=== PATIENT | female | born 1945 | race American Indian/Alaskan Native ===

== ENCOUNTER 2017-03-17 11:57 | Outpatient (CLI) | payer MEDICARE ==
--- NOTE | 2017-03-17 13:10 | Mammography Report ---
Screening mammogram: Prior exams dating back to 2014. The left breast pattern is generally stable and that of intermediate fibroglandular density. There multiple nodular densities in the right breast. Several of these have remained stable however in the anterior breast just above and lateral to their is an enlarging circumscribed nodule and in the central breast appear to be in new circumscribed nodular density. The findings are not otherwise remarkable. CAD used. Impression: Right breast nodular asymmetries. Recommendation: Additional spot compression imaging of the right breast nodules and ultrasound. BI-RADS CATEGORY: 0 = Needs additional imaging evaluation ACR BI-RADS MAMMOGRAPHIC CODES: 0 = Needs additional imaging evaluation; 1 = Negative; 2 = Benign; 3 = Probably benign; 4 = Suspicious; 5 = Malignant; 6 = Known biopsy-proven malignancy COMMENT: 1. Dense breast tissue, i.e., adenosis, fibrocystic changes, etc., may obscure an underlying neoplasm. 2. Approximately 10% of cancers are not detected with mammography. 3. A negative mammography report should not delay biopsy if a clinically suspicious mass is present.
== END 2017-03-17 11:58 | disposition home or self-care (01) ==
LOC: MAMMO 11:57
PROVIDERS: ATTEND Internal Medicine
DX: Z12.31 Encounter for screening mammogram for malignant neoplasm of breast (principal)
CPT/HCPCS: 77067; G0202

== ENCOUNTER 2017-05-15 10:54 | Outpatient (CLI) | payer MEDICARE ==
--- NOTE | 2017-05-15 14:04 | Mammography Report ---
Right mammogram and right breast ultrasound: Compression imaging of the right breast confirms the presence of a circumscribed nodule in the anterolateral breast near the nipple measuring just under 14 mm. The 2 adjacent densities were noted in the lateral projection of the mid-breast on prior screening imaging however are lower identified. Ultrasound of the upper outer breast demonstrates shadowing calcifications at 2:00. In the 3:00 subareolar location there is a circumscribed anechoic mass measuring just over 1 cm consistent with the circumscribed mammographic mass. Also in the 2:00 location 10 cm away from the nipple is a circumscribed homogeneous hypodensity measuring 5 mm as well as an adjacent similar density. No other findings. Impressions: 1. The discrete mammographic density is consistent with a simple cyst. 2. The hypodense nodules have no suspicious characteristics and may represent small lymph nodes. Recommendation: Annual mammogram followup. BI-RADS CATEGORY: 2 = Benign ACR BI-RADS MAMMOGRAPHIC CODES: 0 = Needs additional imaging evaluation; 1 = Negative; 2 = Benign; 3 = Probably benign; 4 = Suspicious; 5 = Malignant; 6 = Known biopsy-proven malignancy COMMENT: 1. Dense breast tissue, i.e., adenosis, fibrocystic changes, etc., may obscure an underlying neoplasm. 2. Approximately 10% of cancers are not detected with mammography. 3. A negative mammography report should not delay biopsy if a clinically suspicious mass is present.
== END 2017-05-15 10:55 | disposition home or self-care (01) ==
LOC: MAMMO 10:54
PROVIDERS: ATTEND Internal Medicine
DX: N63.10 Unspecified lump in the right breast, unspecified quadrant (principal); R92.8 Other abnormal and inconclusive findings on diagnostic imaging of breast; R92.1 Mammographic calcification found on diagnostic imaging of breast

== ENCOUNTER 2018-04-10 10:02 | Outpatient (CLI) | payer MEDICARE ==
--- NOTE | 2018-04-10 12:55 | Mammography Report ---
BILATERAL DIGITAL SCREENING MAMMOGRAM with CAD: 04/10/18 10:02:00 CLINICAL: Routine screening. COMPARISON:05/15/17, 03/17/17 and 03/11/16 FINDINGS: There are scattered areas of fibroglandular density.Stable right outer circumscribed masses. No new mass, architectural distortion or suspicious calcifications. IMPRESSION: No mammographic evidence of malignancy. BI-RADS CATEGORY: 2 -- Benign RECOMMENDATION: Routine mammographic screening in one year. COMMENT: Patient follow-up letters are generated by our [employer] application.
== END 2018-04-10 10:03 | disposition home or self-care (01) ==
LOC: MAMMO 10:02
PROVIDERS: ATTEND Internal Medicine
DX: Z12.31 Encounter for screening mammogram for malignant neoplasm of breast (principal)
CPT/HCPCS: 77067

== ENCOUNTER 2019-04-12 10:43 | Outpatient (CLI) | payer MEDICARE ==
--- NOTE | 2019-04-12 13:25 | Mammography Report ---
DIGITAL SCREENING MAMMOGRAM WITH CAD, 04/12/2019 INDICATION: Routine screening mammography. TECHNIQUE: Digital bilateral 2D mammography was obtained in the craniocaudal and mediolateral obliq ue projections. This examination was interpreted with the benefit of Computer-Aided Detection analysi s. COMPARISON: 04/10/2018 and 06/16/2013 FINDINGS: Breast Density: There are scattered areas of fibroglandular density. There is no evidence of new mass, suspicious calcifications or architectural distortion in either letty ast. IMPRESSION: No mammographic evidence of malignancy. Follow up recommendation: Routine yearly BI-RADS Category 2: Benign. A "normal" or negative report should not discourage follow up or biopsy of a clinically significant f inding. A written summary of these findings will be mailed to the patient. The patient will be entered into a mammography reporting system which will generate a reminder letter for the patient's next appointmen t at the appropriate interval. The [employer] recommends yearly mammograms starting at age 40 and continuing as l nasim as a woman is in good health. Breast MRI is recommended for women with an approximate 20-25% or greater lifetime risk of breast cancer, including women with a strong family history of breast or ova ted cancer or who have been treated for Hodgkin's disease. Signer Name: Von Benson MD Signed: 04/12/2019 1:20 PM Workstation Name: [id number]
== END 2019-04-12 10:44 | disposition home or self-care (01) ==
LOC: MAMMO 10:43
PROVIDERS: ATTEND Internal Medicine
DX: Z12.31 Encounter for screening mammogram for malignant neoplasm of breast (principal); N64.89 Other specified disorders of breast
CPT/HCPCS: 77067

== ENCOUNTER 2020-05-22 11:57 | Outpatient (CLI) | payer MEDICARE ==
--- NOTE | 2020-05-22 15:24 | Mammography Report ---
DIGITAL SCREENING MAMMOGRAM WITH CAD, 05/22/2020 CLINICAL INFORMATION / INDICATION: Routine screening mammography. TECHNIQUE: Digital bilateral 2D mammography was obtained in the craniocaudal and mediolateral obliqu e projections. This examination was interpreted with the benefit of Computer-Aided Detection analysis . COMPARISON: 04/12/2019, 04/10/2018 FINDINGS: Breast Density: There are scattered areas of fibroglandular density. No dominant mass, suspicious calcifications, or architectural distortion in either breast. Stable benign-appearing nodularity is again noted in the right breast, most likely multiple fibroaden omas. Overall, no significant interval change. IMPRESSION: No mammographic evidence of malignancy. Follow up recommendation: Routine yearly BI-RADS Category 2: Benign. A "normal" or negative report should not discourage follow up or biopsy of a clinically significant f inding. A written summary of these findings will be mailed to the patient. The patient will be entered into a mammography reporting system which will generate a reminder letter for the patient's next appointmen t at the appropriate interval. The [employer] recommends yearly mammograms starting at age 40 and continuing as l nasim as a woman is in good health. Breast MRI is recommended for women with an approximate 20-25% or greater lifetime risk of breast cancer, including women with a strong family history of breast or ova ted cancer or who have been treated for Hodgkin's disease. Signer Name: Sandrita Mir MD Signed: 05/22/2020 3:20 PM Workstation Name: [id number]
== END 2020-05-22 11:58 | disposition home or self-care (01) ==
LOC: MAMMO 11:57
PROVIDERS: ATTEND Internal Medicine
DX: Z12.31 Encounter for screening mammogram for malignant neoplasm of breast (principal)
CPT/HCPCS: 77067

== ENCOUNTER 2021-05-28 11:35 | Outpatient (CLI) | payer MEDICARE ==
--- NOTE | 2021-05-28 14:07 | Mammography Report ---
DIGITAL SCREENING MAMMOGRAM WITH CAD, 05/28/2021 CLINICAL INFORMATION / INDICATION: Routine screening mammography. SCREENING MAMMO TECHNIQUE: Digital bilateral 2D mammography was obtained in the craniocaudal and mediolateral obliqu e projections. This examination was interpreted with the benefit of Computer-Aided Detection analysis . COMPARISON: 06/16/2013 through 05/22/2020. FINDINGS: Breast Density: There are scattered areas of fibroglandular density. No dominant mass, suspicious calcifications, or architectural distortion in the left breast. There is a new or enlarging 1.2 cm nodule or cluster of nodules in the right breast in the anterior t o middle depth near the 6:00 position 2 cm from the nipple. IMPRESSION: Small nodule or cluster of nodules in the right inferior breast. Right breast ultrasound is recommended for initial evaluation. Spot compression views could be performed if necessary. Follow up recommendation: Ultrasound BI-RADS Category 0: INCOMPLETE. Needs additional imaging evaluation and/or prior mammograms for rosalind rison. A "normal" or negative report should not discourage follow up or biopsy of a clinically significant f inding. A written summary of these findings will be mailed to the patient. The patient will be entered into a mammography reporting system which will generate a reminder letter for the patient's next appointmen t at the appropriate interval. The [employer] recommends yearly mammograms starting at age 40 and continuing as l nasim as a woman is in good health. Breast MRI is recommended for women with an approximate 20-25% or greater lifetime risk of breast cancer, including women with a strong family history of breast or ova ted cancer or who have been treated for Hodgkin's disease. Signer Name: Jhony Manrique MD Signed: 05/28/2021 2:02 PM Workstation Name: [id number]
== END 2021-05-28 11:36 | disposition home or self-care (01) ==
LOC: SPVWC 11:35
PROVIDERS: ATTEND Internal Medicine
DX: Z12.31 Encounter for screening mammogram for malignant neoplasm of breast (principal); N64.89 Other specified disorders of breast
CPT/HCPCS: 77067

== ENCOUNTER 2021-06-18 11:31 | Outpatient (CLI) | payer MEDICARE ==
--- NOTE | 2021-06-18 12:38 | Ultrasound Report ---
ULTRASOUND BREAST RIGHT LIMITED, 04/07/2009 CLINICAL INFORMATION / INDICATION: ABNORMAL MAMMOGRAM. Patient presents as a callback from screening mammogram for further evaluation of a nodular density in the right breast. TECHNIQUE: Targeted ultrasound evaluation was performed of the area of interest. COMPARISON: Prior mammogram 05/28/2021 FINDINGS: Corresponding with the nodular density seen on recent mammogram, there is a complex cystic and solid mass in the right breast 6:00 position located 3 cm from the nipple measuring up to 1.2 x 0.6 x 1.0 c m. A focus of internal vascularity is identified within the solid component. There is incidental duct ectasia noted in the 6:00 subareolar right breast. IMPRESSION: 1. A complex cystic and solid mass corresponds with the mammographic finding and is considered suspic ious for malignancy, ultrasound-guided biopsy is recommended. Follow up recommendation: Biopsy BI-RADS Category 4: SUSPICIOUS FOR MALIGNANCY. A normal or "negative" report should not preclude biopsy or follow-up of a clinically suspicious find ing. Signer Name: Sharonda Ambriz MD Signed: 06/18/2021 12:33 PM Workstation Name: [id number]
== END 2021-06-18 11:32 | disposition home or self-care (01) ==
LOC: US 11:31
PROVIDERS: ATTEND Internal Medicine
DX: N60.01 Solitary cyst of right breast (principal); N63.41 Unspecified lump in right breast, subareolar

== ENCOUNTER 2021-09-20 09:56 | Outpatient (CLI) | payer MEDICARE ==
[2021-09-20] MEDS ORDERED: LIDOCAINE (1%) 10 MG/1 ML VIAL 20 ML MDV ONE (10:54)
--- NOTE | 2021-09-20 16:04 | Ultrasound Report ---
ULTRASOUND GUIDED RIGHT BREAST BIOPSY, 09/20/2021 CLINICAL INFORMATION / INDICATION: ABNORMAL MAMMOGRAM R92.8. COMPARISON: Breast ultrasound dated 06/18/2021. Mammogram dated 05/28/2021. PROCEDURE: Risks, benefits, and indications to the procedure were discussed with the patient in detail, includin g bleeding, infection, hematoma formation, and inadequate tissue sampling. The patient agreed to proc eed with both verbal and written consent. A timeout procedure was performed with two patient identifi ers. The breast was prepped and draped in the usual sterile fashion. Lidocaine 1% with and without epineph rine were used for local anesthesia. Under direct ultrasound guidance, multiple core samples were obt ained of the 1.2 x 0.6 x 1.0 cm lesion in the right breast at the 6:00 position 3 cm from the nipple. A biopsy marker was then placed. Biopsy device was removed and hemostasis achieved with manual pres sure. A sterile dressing was applied to the skin. The patient tolerated the procedure without difficulty. No complications were encountered. Postbiopsy instructions were discussed with the patient and given in writing. Specimens were sent to pathology. IMPRESSION: 1. Technically successful ultrasound guided right breast biopsy. Signer Name: Landry Oliveros Jr, MD Signed: 09/20/2021 3:59 PM Workstation Name: [id number]
--- NOTE | 2021-09-21 09:34 | Mammography Report ---
DIGITAL DIAGNOSTIC MAMMOGRAM WITH CAD CONVENTIONAL, 09/20/2021 CLINICAL INFORMATION / INDICATION: Postbiopsy mammogram following right breast ultrasound-guided biop sy. TECHNIQUE: Digital right mammographic imaging was performed. This examination was interpreted with the benefit of Computer-aided Detection analysis. COMPARISON: Prior mammogram 05/28/2021 and right breast ultrasound 06/18/2021 FINDINGS: Breast Density: There are scattered areas of fibroglandular density. Postbiopsy mammogram demonstrates a biopsy clip appropriately positioned at site of previously descri bed mass in the 6:00 position of the right breast, middle depth. IMPRESSION: 1. Appropriately positioned biopsy clip following right breast ultrasound-guided biopsy. Follow up recommendation: No recall. Post biopsy imaging. A "normal" or negative report should not discourage follow up or biopsy of a clinically significant f inding. A written summary of these findings will be mailed to the patient. The patient will be entered into a mammography reporting system which will generate a reminder letter for the patient's next appointmen t at the appropriate interval. According to the [employer], yearly mammograms are recommended starting at age 40 and continuing as long as a woman is in good health. Breast MRI is recommended for women with an bridget roximately 20-25% or greater lifetime risk of breast cancer, including women with a strong family his tory of breast or ovarian cancer and women who have been treated for Hodgkin's disease. Signer Name: Sharonda Ambriz MD Signed: 09/21/2021 9:29 AM Workstation Name: [id number]
== END 2021-09-20 09:57 | disposition home or self-care (01) ==
LOC: US 09:56
PROVIDERS: ATTEND Internal Medicine
DX: N63.13 Unspecified lump in the right breast, lower outer quadrant (principal); D24.1 Benign neoplasm of right breast; N60.81 Other benign mammary dysplasias of right breast; R92.8 Other abnormal and inconclusive findings on diagnostic imaging of breast; R92.1 Mammographic calcification found on diagnostic imaging of breast
CPT/HCPCS: 88305